=== PATIENT | male | born 1995 | race Caucasian/White ===

== ENCOUNTER → 2022-12-20 | Outpatient (CLI) | payer OTHER, SELFPAY ==
[2022-12-23 18:08] LABS: Angiotensin Convert Enzyme 27 U/L (14-82); HLA B27 Positive (.); Treponema palladium Ab (FTA) Non Reactive (Non Reactive)
== END | disposition home or self-care (01) ==
PROVIDERS: Referring Provider Ophthalmology; Visit Provider Ophthalmology
DX: H20.021 Recurrent acute iridocyclitis, right eye (principal)
CPT/HCPCS: 36415; 81374; 82164; 86780